=== PATIENT | female | born 1990 | race Caucasian/White ===

== ENCOUNTER 2020-02-08 14:16 | Emergency (ER) | payer MEDICAID, OTHER ==
[~2020-02-08] VITALS: Ht 157 cm; Wt 68.0 kg
[2020-02-08] MEDS ORDERED: AZITHROMYCIN 250 MG TAB (ZITHROMAX) PO SCH (15:00)
[2020-02-08] MEDS ORDERED: meTOprolol 5 MG/5 ML (LOPRESSOR) VIAL IV ONE (15:00)
[2020-02-08] MEDS ORDERED: KETOROLAC 30 MG/ML VIAL IVP ONE (15:00)
--- NOTE | 2020-02-08 15:02 | ED General ---
General Chief Complaint: Fever-Adult/Adol Stated Complaint: FEVER, CHILLS,FORD, MUSCLE PAIN Source of Information: Patient Exam Limitations: No Limitations History of Present Illness Date Seen by Provider: Feb 08, 2020 Time Seen by Provider: 14:59 Initial Comments To ER with reports of low-grade fever, general malaise, low back pain, vaginal discharge, right wrist pain, left ankle pain. The symptoms began yesterday. 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 Timing/Duration: 1-2 Days Severity: Moderate Associated Systoms: No Cough; Fever/Chills Allergies and Home Medications Allergies Coded Allergies: No Known Drug Allergies (Unverified , 02/08/20) Patient Home Medication List Home Medication List Reviewed: Yes Review of Systems Review of Systems Constitutional: see HPI, chills, fever EENTM: see HPI Respiratory: no symptoms reported Cardiovascular: no symptoms reported Genitourinary: no symptoms reported Musculoskeletal: see HPI, joint pain Skin: no symptoms reported Psychiatric/Neurological: No Symptoms Reported Hematologic/Lymphatic: No Symptoms Reported Physical Exam Vital Signs Vital Signs - First Documented 02/08/20 14:35 Temp 37.4 Pulse 135 Resp 20 B/P (MAP) 152/104 (120) Pulse Ox 98 Capillary Refill : Height, Weight, BMI Height: '" Weight: lbs. oz. kg; BMI Method: General Appearance: No Apparent Distress, WD/WN, Other (Heart rate 113 sinus, blood pressure 167/106, oxygen 97% room air. Alert and oriented.) Eyes: Bilateral Eye Normal Inspection, Bilateral Eye PERRL Neck: Full Range of Motion, Normal Inspection Respiratory: No Accessory Muscle Use, No Respiratory Distress Cardiovascular: Normal Peripheral Pulses, Tachycardia, Other (no audible murmur) Gastrointestinal: Normal Bowel Sounds, Non Tender, Soft, Other (no abdominal tenderness) Extremity: Normal Capillary Refill, Other (Medial aspect of the left ankle is tender to touch with a bit of erythema. The right wrist is tender with any range of motion but is not swollen or erythematous. She does have a nontender erythematous papule on the palm of the left hand and a nontender erythematous papule to the medial aspect of the arch of the left foot on the plantar surface. These could represent Os[place] nodes from endocarditis or disseminated gonococcal infection.) Neurologic/Psychiatric: Alert, Oriented x3 Skin: Normal Color, Warm/Dry Focused Exam Lactate Level 02/08/20 14:45: Lactic Acid Level 1.82 Lactic Acid Level Laboratory Tests Test 02/08/20 14:45 Lactic Acid Level 1.82 MMOL/L (0.50-2.00) Progress/Results/Core Measures Suspected Sepsis SIRS Temperature: Pulse: Respiratory Rate: Laboratory Tests 02/08/20 14:45: White Blood Count 12.7H Blood Pressure / Mean: 02/08/20 14:45: Lactic Acid Level 1.82 Laboratory Tests 02/08/20 14:45: Creatinine 0.88, Platelet Count 299, Total Bilirubin 0.3 Results/Orders Lab Results Laboratory Tests Test 02/08/20 14:45 02/08/20 14:49 02/08/20 14:50 02/08/20 15:10 Range/Units White Blood Count 12.7 H 4.3-11.0 10^3/uL Red Blood Count 4.34 3.80-5.11 10^6/uL Hemoglobin 13.5 11.5-16.0 g/dL Hematocrit 39 35-52 % Mean Corpuscular Volume 91 80-99 fL Mean Corpuscular Hemoglobin 31 25-34 pg Mean Corpuscular Hemoglobin Concent 34 32-36 g/dL Red Cell Distribution Width 11.5 10.0-14.5 % Platelet Count 299 130-400 10^3/uL Mean Platelet Volume 9.3 9.0-12.2 fL Immature Granulocyte % (Auto) 0 % Neutrophils (%) (Auto) 82 H 42-75 % Lymphocytes (%) (Auto) 10 L 12-44 % Monocytes (%) (Auto) 7 0-12 % Eosinophils (%) (Auto) 1 0-10 % Basophils (%) (Auto) 0 0-10 % Neutrophils # (Auto) 10.3 H 1.8-7.8 10^3/uL Lymphocytes # (Auto) 1.3 1.0-4.0 10^3/uL Monocytes # (Auto) 0.9 0.0-1.0 10^3/uL Eosinophils # (Auto) 0.1 0.0-0.3 10^3/uL Basophils # (Auto) 0.1 0.0-0.1 10^3/uL Immature Granulocyte # (Auto) 0.1 0.0-0.1 10^3/uL Neutrophils % (Manual) 88 % Lymphocytes % (Manual) 7 % Monocytes % (Manual) 5 % Blood Morphology Comment NORMAL Erythrocyte Sedimentation Rate 21 H 0-20 MM/HR Sodium Level 135 135-145 MMOL/L Potassium Level 3.5 L 3.6-5.0 MMOL/L Chloride Level 99 98-107 MMOL/L Carbon Dioxide Level 22 21-32 MMOL/L Anion Gap 14 5-14 MMOL/L Blood Urea Nitrogen 10 7-18 MG/DL Creatinine 0.88 0.60-1.30 MG/DL Estimat Glomerular Filtration Rate > 60 BUN/Creatinine Ratio 11 Glucose Level 106 H 70-105 MG/DL Lactic Acid Level 1.82 0.50-2.00 MMOL/L Calcium Level 9.0 8.5-10.1 MG/DL Corrected Calcium 8.8 8.5-10.1 MG/DL Total Bilirubin 0.3 0.1-1.0 MG/DL Aspartate Amino Transf (AST/SGOT) 18 5-34 U/L Alanine Aminotransferase (ALT/SGPT) 15 0-55 U/L Alkaline Phosphatase 72 40-136 U/L C-Reactive Protein High Sensitivity 11.76 H 0.00-0.50 MG/DL Total Protein 7.3 6.4-8.2 GM/DL Albumin 4.3 3.2-4.5 GM/DL Serum Test, Qualitative NEGATIVE NEGATIVE Urine Color YELLOW Urine Clarity CLEAR Urine pH 7.0 5-9 Urine Specific [place] <=1.005 1.016-1.022 Urine Protein NEGATIVE NEGATIVE Urine Glucose (UA) NEGATIVE NEGATIVE Urine Ketones NEGATIVE NEGATIVE Urine Nitrite NEGATIVE NEGATIVE Urine Bilirubin NEGATIVE NEGATIVE Urine Urobilinogen 0.2 < = 1.0 MG/DL Urine Leukocyte Esterase TRACE H NEGATIVE Urine RBC (Auto) NEGATIVE NEGATIVE Urine RBC 0-2 /HPF Urine WBC 0-2 /HPF Urine Squamous Epithelial Cells 10-25 H /HPF Urine Crystals NONE /LPF Urine Bacteria MODERATE H /HPF Urine Casts NONE /LPF Urine Mucus NEGATIVE /LPF Urine Culture Indicated YES Urine Opiates Screen NEGATIVE NEGATIVE Urine Oxycodone Screen NEGATIVE NEGATIVE Urine Methadone Screen NEGATIVE NEGATIVE Urine Propoxyphene Screen NEGATIVE NEGATIVE Urine Barbiturates Screen NEGATIVE NEGATIVE Ur Tricyclic Antidepressants Screen NEGATIVE NEGATIVE Urine Phencyclidine Screen NEGATIVE NEGATIVE Urine Amphetamines Screen POSITIVE H NEGATIVE Urine Methamphetamines Screen POSITIVE H NEGATIVE Urine Benzodiazepines Screen NEGATIVE NEGATIVE Urine Cocaine Screen NEGATIVE NEGATIVE Urine Cannabinoids Screen NEGATIVE NEGATIVE Coronavirus 2019 ([facility]) Negative Negative Micro Results Microbiology 02/08/20 Influenza Types A,B Antigen (BEV) - Final, Complete My Orders Orders - SUSAN CABRALES APRN Covid 19 Inhouse Test (02/08/20 14:49) Influenza A And B Antigens (02/08/20 14:49) Cbc And Manual Diff (02/08/20 14:49) Hs C Reactive Protein (02/08/20 14:49) Erythrocyte Sedimentation Rate (02/08/20 14:49) Ua Culture If Indicated (02/08/20 14:49) Drug Screen Stat (Urine) (02/08/20 14:49) Hcg,Qualitative Serum (02/08/20 14:49) Blood Culture (02/08/20 14:49) Lactic Acid Analyzer (02/08/20 14:49) Chest 1 View, Ap/Pa Only (02/08/20 14:56) Wet Prep (02/08/20 14:56) Genital Culture (02/08/20 14:56) Neisseria Gonorrhea Swab (02/08/20 14:56) Chlamydia Trachomatis Swab (02/08/20 14:56) Ketorolac Injection (Toradol Injection) (02/08/20 15:00) Metoprolol Tartrate Injection (Lopressor (02/08/20 15:00) Azithromycin Tablet (Zithromax Tablet) (02/08/20 15:00) Comprehensive Metabolic Panel (02/08/20 15:21) Urine Culture (02/08/20 14:49) Medications Given in ED Current Medications Medications Dose Ordered Sig/Ronny Route Start Time Stop Time Status Last Admin Dose Admin Ketorolac Tromethamine 15 mg ONCE ONCE IVP 02/08/20 15:00 02/08/20 15:01 DC 02/08/20 15:14 15 MG Metoprolol Tartrate 5 mg ONCE ONCE IV 02/08/20 15:00 02/08/20 15:01 DC 02/08/20 15:14 5 MG Vital Signs/I&O 02/08/20 14:35 Temp 37.4 Pulse 135 Resp 20 B/P (MAP) 152/104 (120) Pulse Ox 98 Capillary Refill : Diagnostic Imaging Diagonstic Imaging: Xray Comments NAME: JERZY MÁRQUEZ MED REC#: [id number] PT STATUS: REG ER : 1990 PHYSICIAN: SUSAN CABRALES APRN ADMIT DATE: 02/08/20/ER Draft Date of Exam:02/08/20 CHEST 1 VIEW, AP/PA ONLY INDICATION: Cough. Right shoulder pain. FINDINGS: Portable chest. The lungs are well aerated and clear. Heart is not enlarged. No pulmonary edema or hilar adenopathy. No pneumothorax or pleural effusion. No bony abnormalities. IMPRESSION: Negative portable chest. Dictated on workstation # [id number] Dict: 02/08/20 1548 Trans: 02/08/20 1550 [id number] Interpreted by: SCOTT MÉNDEZ MD Electronically signed by: Departure Communication (Admissions) [id number] discussed with Dr. Jaquez's nurse practitioner Patience in [place] the concerns I have for disseminated gonococcal infection. She reports that the patient was positive within the past few months for gonorrhea but was treated. She also has the patient scheduled for an echocardiogram for hypertension and tachycardia. This was scheduled for February 02 but the patient did not show up. I made another appointment for the patient with Patience at Dr. Jaquez's office on Saturday the , at 10 AM. In the meantime she has received Rocephin and azithromycin here, I will put her on doxycycline outpatient. Impression Primary Impression: DGI (disseminated gonococcal infection) Disposition: HOME, SELF-CARE Condition: Stable Departure-Patient Inst. Decision time for Depature: 16:41 Referrals: PIPER JAQUEZ MD (PCP/Family) Primary Care Physician Patient Instructions: NO INSTRUCTIONS GIVEN Add. Discharge Instructions: 1. Follow up with Dr Sho Morin's [facility] [facility] in [place]. Antibiotics as directed. Re turn to Er for any worsening. Emergency department focuses on treating and ruling out life-threatening diseases. Whenever possible, a diagnosis is given. However, most patients are given an impression based on their history, physical exam, and workup during your brief time in the ER. Information about probable diagnosis and other educational material has been provided. Please take the time to read and understand this information. It is very important that you follow up with a physician as discussed during the visit today. Failure to adhere to your follow-up instructions may lead to severe disability, injury, or so please make sure to keep your appointments or obtain one as requested. All discharge instructions reviewed with patient and/or family. Voiced understanding. Scripts Doxycycline Hyclate (Doxycycline Hyclate) 100 Mg Tablet 100 MG PO BID, #20 TAB 0 Refills Prov: SUSAN CABRALES APRN 02/08/20 SUSAN CABRALES APRN Feb 08, 2020 15:02
[2020-02-08 15:08] LABS: BILIRUBIN,URINE NEGATIVE (NEGATIVE); CLARITY,URINE CLEAR; COLOR,URINE YELLOW; GLUCOSE, URINE (UA) NEGATIVE (NEGATIVE); KETONES,URINE NEGATIVE (NEGATIVE); LEUKOCYTE ESTERASE ,URINE TRACE (NEGATIVE); NITRITE,URINE NEGATIVE (NEGATIVE); PROTEIN,URINE NEGATIVE (NEGATIVE)
[2020-02-08 15:18] LABS: AMPHETAMINE SCREEN, URINE POSITIVE (NEGATIVE); BARBITURATE SCREEN URINE NEGATIVE (NEGATIVE); BENZODIAZEPINES SCREEN URINE NEGATIVE (NEGATIVE); CANNABINOID SCREEN, URINE NEGATIVE (NEGATIVE); COCAINE SCREEN URINE NEGATIVE (NEGATIVE); METHADONE STAT NEGATIVE (NEGATIVE); METHAMPHETAMINE SCREEN URINE S POSITIVE (NEGATIVE); OPIATE SCREEN URINE NEGATIVE (NEGATIVE); OXYCODONE STAT NEGATIVE (NEGATIVE); PROPOXYPHENE STAT NEGATIVE (NEGATIVE); TRICYCLIC ANTIDEPRESSANTS SCRE NEGATIVE (NEGATIVE)
[2020-02-08 15:22] LABS: BASOPHILS # (AUTO) 0.1 10^3/uL (0.0-0.1); BASOPHILS % (AUTO) 0 % (0-10); EOSINOPHILS # (AUTO) 0.1 10^3/uL (0.0-0.3); EOSINOPHILS % (AUTO) 1 % (0-10); HEMATOCRIT 39 % (35-52); HEMOGLOBIN 13.5 g/dL (11.5-16.0); LYMPHOCYTES # (AUTO) 1.3 10^3/uL (1.0-4.0); LYMPHOCYTES % (AUTO) 10 % (12-44); MEAN CORPUSCULAR HEMOGLOBIN 31 pg (25-34); MEAN CORPUSCULAR HGB CONC 34 g/dL (32-36); MEAN CORPUSCULAR VOLUME 91 fL (80-99); MEAN PLATELET VOLUME 9.3 fL (9.0-12.2); MONOCYTES # (AUTO) 0.9 10^3/uL (0.0-1.0); MONOCYTES % (AUTO) 7 % (0-12); NEUTROPHILS # (AUTO) 10.3 10^3/uL (1.8-7.8); NEUTROPHILS % (AUTO) 82 % (42-75); PLATELET COUNT 299 10^3/uL (130-400); WHITE BLOOD COUNT 12.7 10^3/uL (4.3-11.0)
[2020-02-08 15:24] LABS: BACTERIA,URINE MODERATE /HPF; RBC,URINE 0-2 /HPF; WBC,URINE 0-2 /HPF
[2020-02-08 15:33] LABS: ALBUMIN 4.3 GM/DL (3.2-4.5)
[2020-02-08 15:34] LABS: CHLORIDE 99 MMOL/L (98-107); POTASSIUM 3.5 MMOL/L (3.6-5.0); SODIUM 135 MMOL/L (135-145)
[2020-02-08 15:36] LABS: GLUCOSE 106 MG/DL (70-105); TOTAL PROTEIN 7.3 GM/DL (6.4-8.2)
[2020-02-08 15:37] LABS: CARBON DIOXIDE 22 MMOL/L (21-32)
[2020-02-08 15:38] LABS: BILIRUBIN,TOTAL 0.3 MG/DL (0.1-1.0)
[2020-02-08 15:40] LABS: ALKALINE PHOSPHATASE 72 U/L (40-136); CREATININE SERUM 0.88 MG/DL (0.60-1.30); GFR ESTIMATED > 60
[2020-02-08 15:41] LABS: BUN/CREATININE RATIO 11
[2020-02-08 15:43] LABS: ALANINE AMINOTRANSFERASE 15 U/L (0-55)
--- NOTE | 2020-02-08 15:50 | Diagnostic Imaging Report ---
INDICATION: Cough. Right shoulder pain. FINDINGS: Portable chest. The lungs are well aerated and clear. Heart is not enlarged. No pulmonary edema or hilar adenopathy. No pneumothorax or pleural effusion. No bony abnormalities. IMPRESSION: Negative portable chest. Dictated by: Dictated on workstation # [id number]
[2020-02-08 16:25] LABS: ERYTHROCYTE SEDIMENTATION RATE 21 MM/HR (0-20); LYMPHOCYTES % (MANUAL) 7 %; MONOCYTES % (MANUAL) 5 %; NEUTROPHILS % (MANUAL) 88 %; RBC MORPH NORMAL
[2020-02-08] MEDS ORDERED: DOXY100T2 PO (17:07)
[2020-02-08 17:09] VITALS: BP 127/83
== END 2020-02-08 17:11 | disposition home or self-care (01) ==
LOC: ER 14:21
DX: A54.9 Gonococcal infection, unspecified (principal); Z20.828 Contact with and (suspected) exposure to other viral communicable diseases
CPT/HCPCS: 71045; 80053; 80306; 81000; 83605; 84703; 85007; 85027; 85652; 86141; 87040; 87070; 87088; 87205; 87210; 87491; 87591; 87804; U0002; 36415; 87077; 87635